=== PATIENT | female | born 1960 | race Caucasian/White ===

== ENCOUNTER → 2016-04-27 | Outpatient (CLI) | payer OTHER ==
[~2016-04-27] MED LIST: ACCL20 PO; ALBU0.08 INH; ASTN NAE; B-COTAB18 PO; BSP/5 PO; BUME1TAB PO; CRFL PO; CYCL5TAB28 PO; EPP3/2 IM; FEXO1TAB49 PO; FEXO1TAB58 PO; FLUO10CA24 PO; GABA-113 PO; GLYC2SUP PR; LEVO150T9 PO; LORA1TAB13 PO; METHPOW7 PO; MISCCAP80 PO; MOME200A INH; NAPR1TAB9 PO; NYSS/ PO; PANT40TA2 PO; Q NASAL INTNAS
--- NOTE | 2016-04-27 15:10 | DIAGNOSTIC IMAGING REPORT ---
CHEST 2 VIEWS ROUTINE CLINICAL HISTORY: R05 [id number] dyspnea COMPARISON STUDY: 12/28/2015 FINDINGS: The bones soft tissues and hemidiaphragms are normal. The cardiomediastinal silhouette is normal. The lungs are clear. The pulmonary vasculature is normal. IMPRESSION: Negative chest. Electronically signed by: Sincere Vann M.D. 04/27/2016 3:08 PM Dictated Date/Time: 04/27/2016 3:07 PM
== END | disposition home or self-care (01) ==
LOC: C.RAD1850 14:47
PROVIDERS: ATTEND Internal Medicine
DX: R05 Cough (principal)

== ENCOUNTER → 2016-06-14 | Outpatient (CLI) | payer OTHER ==
[~2016-06-14] MED LIST changes: -PANT40TA2 PO; +PRT/40 PO
[2016-06-14 14:38] LABS: BASO % 0.5 %; BASO ABS # 0.04 K/uL (0-0.2); COMPLETE YES; HEMATOCRIT 38.5 % (37-47); IG% 0.3 %; LYMPH % 32.9 %; LYMPH ABS # 2.49 K/uL (1.2-3.4); MEAN CELL VOLUME 91.2 fL (80-100); MEAN CORPUSCULAR HEMOGLOBIN 30.3 pg (25-34); MEAN CORPUSCULAR HGB CONC 33.2 g/dl (32-36); MEAN PLATELET VOLUME 10.6 fL (7.4-10.4); MONO % 8.2 %; NEUT % 56.1 %; PLATELET COUNT 310 K/uL (130-400); RED BLOOD COUNT 4.22 M/uL (4.2-5.4); WHITE BLOOD COUNT 7.56 K/uL (4.8-10.8)
== END | disposition home or self-care (01) ==
LOC: C.LAB1850 12:25
PROVIDERS: ATTEND Specialist
DX: J45.909 Unspecified asthma, uncomplicated (principal); J30.2 Other seasonal allergic rhinitis

== ENCOUNTER → 2016-06-16 | Outpatient (CLI) | payer OTHER ==
--- NOTE | 2016-06-30 12:14 | CODING QUERY NO DIAGNOSIS ---
TREATMENT RENDERED WITHOUT A DIAGNOSIS To promote full compliance with coding requirements relating to patient care, physician participation is requested in all cases of juice bar team member uncertainty. Please assist us with providing a diagnosis/symptom for the test(s) below: A diagnosis/symptom was not documented on your Order. A valid diagnosis/symptom is required to bill all insurances. Please remember that we are unable to code a diagnosis of rule out, probable, possible, questionable, or suspected. Tests that require a diagnosis: * IMMUNOGLOBULIN E DIAGNOSIS: Provider Signature: Date: Thank you Sana Sims [employer] Once completed, please kindly fax back to [phone] For questions please call [phone]
== END | disposition home or self-care (01) ==
LOC: C.LABPVFM 11:29
PROVIDERS: ATTEND Specialist
DX: J45.30 Mild persistent asthma, uncomplicated (principal); J30.2 Other seasonal allergic rhinitis; J30.89 Other allergic rhinitis; R05 Cough

== ENCOUNTER → 2016-06-20 | Outpatient (CLI) | payer OTHER ==
--- NOTE | 2016-06-20 12:46 | DIAGNOSTIC IMAGING REPORT ---
RIGHT SHOULDER MIN 2 VIEWS ROUTINE CLINICAL HISTORY: Right shoulder pain following fall. COMPARISON: None FINDINGS: Alignment of the right shoulder is anatomic. There is no acute fracture. There is mild arthritis of the right shoulder. A 7 mm calcific density along the superolateral aspect of the right humeral head suggests calcific tendinitis. IMPRESSION: 1. No acute fracture or dislocation of the right shoulder. 2. Findings suggestive of calcific tendinitis of the right rotator cuff. Electronically signed by: Ankur Aguilar M.D. 06/20/2016 12:45 PM Dictated Date/Time: 06/20/2016 12:42 PM
--- NOTE | 2016-06-20 12:48 | DIAGNOSTIC IMAGING REPORT ---
RIGHT HIP UNILATERAL 2 VIEWS CLINICAL HISTORY: Trauma. COMPARISON: CT of the abdomen and pelvis September 10, 2015. FINDINGS: Alignment of the right hip is anatomic. No acute fracture is identified. Irregularity of the lesser trochanter is chronic. There is mild arthritis of the right hip. IMPRESSION: No acute fracture or dislocation of the right hip. Electronically signed by: Ankur Aguilar M.D. 06/20/2016 12:46 PM Dictated Date/Time: 06/20/2016 12:45 PM
--- NOTE | 2016-06-20 12:51 | DIAGNOSTIC IMAGING REPORT ---
RIGHT RIBS UNILATERAL WITH PA CHEST CLINICAL HISTORY: T14.90 Blunt [id number] Falls Right trauma COMPARISON STUDY: None FINDINGS: Negative right ribs. Negative chest. No evidence pneumothorax. IMPRESSION: Negative study Electronically signed by: Sincere Vann M.D. 06/20/2016 12:50 PM Dictated Date/Time: 06/20/2016 12:48 PM
--- NOTE | 2016-06-20 12:51 | DIAGNOSTIC IMAGING REPORT ---
CERVICAL SPINE 2 OR 3 VIEWS CLINICAL HISTORY: Falls. COMPARISON STUDY: Neck radiograph October 18, 2015. FINDINGS: Visualization of the cervical spine is adequate. There is reversal of the normal cervical lordosis. This is unchanged. Moderate multilevel degenerative disc disease and facet arthrosis is present. No acute fracture is identified IMPRESSION: 1. No acute cervical spine fracture or subluxation. 2. Moderate multilevel degenerative disc disease and facet arthrosis. Electronically signed by: Ankur Aguilar M.D. 06/20/2016 12:49 PM Dictated Date/Time: 06/20/2016 12:47 PM
== END | disposition home or self-care (01) ==
LOC: C.RAD1850 12:14
PROVIDERS: ATTEND Internal Medicine
DX: T14.90 Injury, unspecified (principal); W19.XXXA Unspecified fall, initial encounter

== ENCOUNTER → 2016-06-29 | Outpatient (CLI) | payer OTHER ==
--- NOTE | 2016-06-29 15:37 | MAMMOGRAPHY REPORT ---
BILATERAL DIGITAL SCREENING MAMMOGRAM TOMOSYNTHESIS WITH CAD: 06/29/2016 CLINICAL HISTORY: Routine screening. Patient has no complaints. TECHNIQUE: Breast tomosynthesis in addition to standard 2D mammography was performed. Current study was also evaluated with a Computer Aided Detection (CAD) system. COMPARISON: Comparison is made to exams dated: 12/08/2014 mammogram - [facility], 01/30/2013 mammogram, 10/14/2013 mammogram, 08/23/2011 mammogram - [facility], 02/24/2010 bettye mogram - [facility], and 07/06/2008. BREAST COMPOSITION: There are scattered areas of fibroglandular density in both breasts. FINDINGS: No suspicious masses, calcifications, or areas of architectural distortion are noted in e ither breast. There has been no significant interval change compared to prior exams. A biopsy marke r clip is again noted in the left 12 o'clock breast. Bilateral benign-appearing calcifications are not significantly changed. Benign intramammary lymph nodes are again seen within bilateral upper ou ter quadrants. IMPRESSION: ACR BI-RADS CATEGORY 2: BENIGN There is no mammographic evidence of malignancy. A 1 year screening mammogram is recommended. The p atient will receive written notification of the results. Approximately 10% of breast cancers are not detected with mammography. A negative mammographic repor t should not delay biopsy if a clinically suggestive mass is present. Galina Lopez M.D. /:06/29/2016 14:52:15 Trouble Tracer: Vonda MENDEZ(Kaity)(M), [facility] letter sent: Normal 1/2 BI-RADS Code: ACR BI-RADS Category 2: Benign
== END | disposition home or self-care (01) ==
LOC: C.MAMM 09:54
PROVIDERS: ATTEND Internal Medicine
DX: Z12.31 Encounter for screening mammogram for malignant neoplasm of breast (principal)

== ENCOUNTER → 2016-07-25 | Outpatient (CLI) | payer OTHER ==
[~2016-07-25] MED LIST changes: +PANT40TA2 PO; -PRT/40 PO
--- NOTE | 2016-07-25 15:14 | DIAGNOSTIC IMAGING REPORT ---
CHEST 2 VIEWS ROUTINE CLINICAL HISTORY: Cough. Shortness of breath. COMPARISON STUDY: Chest radiograph April 27, 2006. FINDINGS: Lung volumes are normal. Lungs are clear. There is no pneumothorax or pleural effusion. Cardiomediastinal silhouette is normal. A small hiatal hernia is again noted. There is no evidence of pulmonary edema. IMPRESSION: No acute cardiopulmonary findings. Electronically signed by: Ankur Aguilar M.D. 07/25/2016 3:13 PM Dictated Date/Time: 07/25/2016 3:12 PM
== END | disposition home or self-care (01) ==
LOC: C.RAD1850 14:40
PROVIDERS: ATTEND Physician Assistant
DX: R05 Cough (principal)

== ENCOUNTER → 2016-10-11 | Outpatient (CLI) | payer OTHER ==
[2016-10-11 09:38] LABS: ALT/SGPT 32 U/L (12-78); BLOOD UREA NITROGEN 19 mg/dl (7-18); BUN/CREATININE RATIO 19.4 (10-20); CARBON DIOXIDE 28 mmol/L (21-32); CHLORIDE 103 mmol/L (98-107); CHOLESTEROL 219 mg/dl (0-200); CREATININE 0.98 mg/dl (0.60-1.20); GLUCOSE 88 mg/dl (70-99); POTASSIUM 3.7 mmol/L (3.5-5.1); SODIUM 141 mmol/L (136-145); TRIGLYCERIDES 44 mg/dl (0-150); VERY LOW DENSITY LIPOPROT CALC 9 mg/dl
[2016-10-11 09:41] LABS: CALCIUM 9.1 mg/dl (8.5-10.1)
[2016-10-11 09:48] LABS: ALB/GLOB RATIO 1.1 (0.9-2); ALKALINE PHOSPHATASE 61 U/L (45-117); AST/SGOT 19 U/L (15-37); CHOLESTEROL/HDL RATIO 2.2; HDL CHOLESTEROL 99 mg/dl; LDL CHOLESTEROL CALCULATED 111 mg/dl
== END | disposition home or self-care (01) ==
LOC: C.LAB1850 07:29
PROVIDERS: ATTEND Internal Medicine
DX: E06.3 Autoimmune thyroiditis (principal)

== ENCOUNTER → 2017-02-12 | Outpatient (CLI) | payer OTHER ==
[~2017-02-12] MED LIST changes: -PANT40TA2 PO; +PRT/40 PO
--- NOTE | 2017-02-12 13:56 | DIAGNOSTIC IMAGING REPORT ---
CHEST 2 VIEWS ROUTINE HISTORY: 57 years-old Female I51.9 Diastolic dysfunction acute cough with shortness of breath COMPARISON: Chest radiograph 07/25/2016 TECHNIQUE: Frontal and lateral views of the chest FINDINGS: Cardiac silhouette is upper limits of normal. No pneumothorax, pleural effusion or lobar airspace consolidation. Subsegmental linear bibasilar opacities suggest atelectasis. No overt pulmonary edema. Multilevel spondylitic changes of the spine. Surgical clips of the right upper abdomen suggest prior cholecystectomy. IMPRESSION: No acute cardiopulmonary process. The above report was generated using voice recognition software. It may contain grammatical, syntax or spelling errors. Electronically signed by: Louie Colon M.D. 02/12/2017 1:55 PM Dictated Date/Time: 02/12/2017 1:53 PM
== END | disposition home or self-care (01) ==
LOC: C.RAD1850 13:16
PROVIDERS: ATTEND Internal Medicine
DX: I51.9 Heart disease, unspecified (principal)

== ENCOUNTER → 2017-04-10 | Outpatient (CLI) | payer OTHER ==
[~2017-04-10] MED LIST changes: -ACCL20 PO; +PANT40TA2 PO; -PRT/40 PO; +ZAFI1TAB11 PO
[2017-04-10 10:24] LABS: PTT PATIENT 28.1 SECONDS (21.0-31.0)
== END | disposition home or self-care (01) ==
LOC: C.LAB1850 09:41
PROVIDERS: ATTEND Internal Medicine
DX: R23.8 Other skin changes (principal)

== ENCOUNTER → 2017-07-13 | Outpatient (CLI) | payer OTHER ==
[~2017-07-13] MED LIST changes: +ACCL20 PO; -ZAFI1TAB11 PO
--- NOTE | 2017-07-16 12:43 | MAMMOGRAPHY REPORT ---
BILATERAL DIGITAL SCREENING MAMMOGRAM TOMOSYNTHESIS WITH CAD: 07/13/2017 CLINICAL HISTORY: Routine screening. Patient has no complaints. TECHNIQUE: Breast tomosynthesis in addition to standard 2D mammography was performed. Current study was also evaluated with a Computer Aided Detection (CAD) system. COMPARISON: Comparison is made to exams dated: 06/29/2016 mammogram, 12/08/2014 mammogram - [facility], 10/14/2013 mammogram, 01/30/2013 mammogram - [facility], 02/24/2010 mammo gram - [facility], and 08/23/2011 mammogram - [facility]. BREAST COMPOSITION: There are scattered areas of fibroglandular density in both breasts. FINDINGS: No suspicious masses, calcifications, or areas of architectural distortion are noted in ei ther breast. There has been no significant interval change compared to prior exams. A biopsy marker clip is again noted in the left 12:00 breast. Scattered bilateral benign-appearing calcifications ar e stable. IMPRESSION: ACR BI-RADS CATEGORY 2: BENIGN There is no mammographic evidence of malignancy. A 1 year screening mammogram is recommended. The pa tient will receive written notification of the results. Approximately 10% of breast cancers are not detected with mammography. A negative mammographic report should not delay biopsy if a clinically suggestive mass is present. Galina Lopez M.D. ah/:07/13/2017 14:33:26 Meat Selector: Deepali GUERRA)(Ahsan), [facility] letter sent: Normal 1/2 BI-RADS Code: ACR BI-RADS Category 2: Benign
== END | disposition home or self-care (01) ==
LOC: C.MAMM 13:46
PROVIDERS: ATTEND Internal Medicine
DX: Z12.31 Encounter for screening mammogram for malignant neoplasm of breast (principal)

== ENCOUNTER → 2017-07-25 | Outpatient (CLI) | payer OTHER ==
[2017-07-25 16:32] LABS: BASO % 0.8 %; BASO ABS # 0.07 K/uL (0-0.2); EOS ABS # 0.26 K/uL (0-0.5); HEMATOCRIT 38.2 % (37-47); HEMOGLOBIN 12.6 g/dL (12.0-16.0); IG# 0.03 K/uL (0.00-0.02); LYMPH % 31.7 %; LYMPH ABS # 2.78 K/uL (1.2-3.4); MEAN CELL VOLUME 91.8 fL (80-100); MEAN CORPUSCULAR HEMOGLOBIN 30.3 pg (25-34); MEAN PLATELET VOLUME 11.3 fL (7.4-10.4); MONO % 8.5 %; MONO ABS # 0.75 K/uL (0.11-0.59); NEUT % 55.7 %; NEUT ABS # 4.89 K/uL (1.4-6.5); PLATELET COUNT 309 K/uL (130-400); WHITE BLOOD COUNT 8.78 K/uL (4.8-10.8)
[2017-07-25 16:48] LABS: BLOOD UREA NITROGEN 25 mg/dl (7-18); CALCIUM 9.3 mg/dl (8.5-10.1); CARBON DIOXIDE 27 mmol/L (21-32); CREATININE 0.93 mg/dl (0.60-1.20); GLUCOSE 98 mg/dl (70-99); POTASSIUM 3.9 mmol/L (3.5-5.1); SODIUM 137 mmol/L (136-145)
== END | disposition home or self-care (01) ==
LOC: C.LAB1850 14:44
PROVIDERS: ATTEND Nurse Practitioner Adult Health
DX: R51 Headache (principal); E03.9 Hypothyroidism, unspecified

== ENCOUNTER 2017-08-15 10:09 | Emergency (ER) | payer OTHER ==
[~2017-08-15] VITALS: Ht 154.9 cm; Wt 89.4 kg
[~2017-08-15 10:09] MED LIST changes: -ACCL20 PO; +ZAFI1TAB11 PO
[2017-08-15 10:16] VITALS: TEMP 37; O2SAT 100; Ht 154.9 cm; Wt 89.4 kg
[2017-08-15] MEDS ORDERED: ONDANSETRON INJ 2 MG/ML 2 ML VIAL IV STA (10:21)
[2017-08-15] MEDS ORDERED: SODIUM CHLORIDE 0.9% 250ML 250 ML IV STA (10:21)
[2017-08-15] MEDS ORDERED: ALBUT/IPRATROP 3MG/0.5MG NEB 3 ML VIAL INH STA (10:21)
[2017-08-15] MEDS ORDERED: DEXAMETHASONE **PF** INJ 10 MG/ML VIAL IV ONE (10:30)
[2017-08-15] MEDS ORDERED: FAMOTIDINE 20 MG TAB PO ONE (10:30)
[2017-08-15 10:48] LABS: BASO % 0.7 %; BASO ABS # 0.05 K/uL (0-0.2); EOS % 3.5 %; EOS ABS # 0.24 K/uL (0-0.5); HEMATOCRIT 39.6 % (37-47); IG# 0.01 K/uL (0.00-0.02); LYMPH ABS # 2.22 K/uL (1.2-3.4); MEAN CELL VOLUME 92.3 fL (80-100); MEAN CORPUSCULAR HEMOGLOBIN 30.3 pg (25-34); MEAN CORPUSCULAR HGB CONC 32.8 g/dl (32-36); MEAN PLATELET VOLUME 10.3 fL (7.4-10.4); MONO % 8.9 %; MONO ABS # 0.62 K/uL (0.11-0.59); NEUT % 54.8 %; PLATELET COUNT 303 K/uL (130-400); RED CELL DISTRIBUTION WIDTH CV 13.9 % (11.5-14.5); RED CELL DISTRIBUTION WIDTH SD 46.3 fL (36.4-46.3); WHITE BLOOD COUNT 6.94 K/uL (4.8-10.8)
[2017-08-15 11:07] LABS: ALBUMIN 3.7 gm/dl (3.4-5.0); ALT/SGPT 31 U/L (12-78); AST/SGOT 21 U/L (15-37); BLOOD UREA NITROGEN 20 mg/dl (7-18); CALCIUM 9.4 mg/dl (8.5-10.1); CARBON DIOXIDE 29 mmol/L (21-32); CREATININE 0.92 mg/dl (0.60-1.20); GLUCOSE 96 mg/dl (70-99); LIPASE 120 U/L (73-393); POTASSIUM 3.8 mmol/L (3.5-5.1); SODIUM 139 mmol/L (136-145)
--- NOTE | 2017-08-15 11:10 | DIAGNOSTIC IMAGING REPORT ---
CHEST ONE VIEW PORTABLE HISTORY: Atypical CHEST PAIN COMPARISON: None. FINDINGS: The lungs are clear. Cardiac silhouette is normal in size. No pleural effusions. No pneumothorax. Stable small lobular retrocardiac density. This is consistent with a small hiatus hernia. IMPRESSION: No acute process. Electronically signed by: Stanley Shabazz M.D. 08/15/2017 11:09 AM Dictated Date/Time: 08/15/2017 11:04 AM
[2017-08-15 11:13] LABS: ALKALINE PHOSPHATASE 86 U/L (45-117); TOTAL PROTEIN 7.2 gm/dl (6.4-8.2)
[2017-08-15] MEDS ORDERED: GI COCKTAIL PO STA (13:11)
[2017-08-15] MEDS ORDERED: LIDOCAINE HCL 2% VISC SOLN 20 ML UDC ONE (13:18)
[2017-08-15] MEDS ORDERED: ALUMINUM/MAGNESIUM SUSP 30 ML UDC ONE (13:18)
--- NOTE | 2017-08-15 13:55 | DIAGNOSTIC IMAGING REPORT ---
THORACIC SPINE 3 VIEWS ROUTINE HISTORY: Pain pain COMPARISON: 08/13/2014 FINDINGS: There is no fracture. No subluxation. Moderate degenerative disc changes throughout. IMPRESSION: Moderate degenerative disc change. No acute process. No change from the prior exam. The above report was generated using voice recognition software. It may contain grammatical, syntax or spelling errors. Electronically signed by: Sincere Vann M.D. 08/15/2017 1:54 PM Dictated Date/Time: 08/15/2017 1:54 PM
--- NOTE | 2017-08-15 14:00 | DIAGNOSTIC IMAGING REPORT ---
LUMBAR SPINE 2 OR 3 VIEWS CLINICAL HISTORY: pain pain COMPARISON STUDY: 01/05/2016 FINDINGS: Vertebral body stature is unremarkable. Minimal grade 1 anterolisthesis of L4 on L5 unchanged. Mildly progressive degenerative disc change L1-L2 and L2-L3. IMPRESSION: 1. Mildly progressive degenerative disc change L1-L2 and L2-L3 compared to the prior study. 2. Minimal grade 1 anterolisthesis of L4 and L5 unchanged. The above report was generated using voice recognition software. It may contain grammatical, syntax or spelling errors. Electronically signed by: Sincere Vann M.D. 08/15/2017 1:59 PM Dictated Date/Time: 08/15/2017 1:58 PM
--- NOTE | 2017-08-15 16:32 | EMERGENCY ROOM VISIT NOTE ---
History Report prepared by Vicky: Everton Franklin Under the Supervision of: Dr. Karlos Solorzano M.D. First contact with patient: 10:13 Chief Complaint: CHEST PAIN Stated Complaint: CHEST PAIN,ARM AND BACK PAIN History of Present Illness The patient is a 57 year old female who presents to the Emergency Room by EMS with complaints of constant left lower chest pain beginning shortly prior to arrival. She woke up with her pain this morning. She felt normal before going to bed last night. The patient describes her pain as a feeling of "heaviness". She states that she felt short of breath upon waking up, but this happens frequently due to a history of sleep apnea. She is on supplemental oxygen at night for sleep apnea, but is not on CPAP or BiPAP due to anxiety. The patient also complains of fatigue, nausea, and chills. She had one episode of vomiting today. She reports a lot of central back pain for "many, many years" (she receives physical therapy for this). She denies fevers, or congestion. The patient has had a cough for several months. She also reports having a sensitive tooth on the left lower side (patient was seen by dentist two weeks ago, and it was deemed normal). She has a history of GERD. Source of History: patient Onset: Shortly prior to arrival Position: chest (left lower) Quality: other ("heaviness") Timing: constant Associated Symptoms: + chills, + nausea, + vomiting (one episode today), + fatigue, No fevers Note: Negative: congestion. Review of Systems See HPI for pertinent positives and negatives. A total of ten systems were reviewed and were otherwise negative. Past Medical & Surgical Medical Problems: (1) Allergic reaction (2) Allergic reaction (3) Asthma (4) Asthma (5) Back pain (6) Back pain (7) Back pain (8) CHOLECYSTITIS, NOS (9) ESOPHAGEAL REFLUX (10) Fibromyalgia (11) HYPOTHYROIDISM NOS (12) Impaired swallowing (13) IRRITABLE BOWEL SYNDROME (14) MYALGIA AND MYOSITIS NOS (15) Seasonal allergies (16) Seasonal allergies (17) Spinal stenosis (18) Swallowing difficulty (19) Vaso vagal episode Surgical Problems: (1) History of cholecystectomy Family History Cancer Diabetes mellitus Gallbladder disease Hypertension Social History Smoking Status: Former Smoker Alcohol Use: occasionally Drug Use: none Marital Status: Housing Status: lives with significant other Occupation Status: employed Current/Historical Medications Scheduled Azelastine Hcl (Astelin Nasal [place]), 2 SPRAY AMANDA QAM B-Complex Vitamins (Vitamin B Complex), 1 TAB PO QAM Buspirone HCl (Buspirone HCl), 5 MG PO HS Fluoxetine HCl (Fluoxetine HCl), 20 MG PO HS Levothyroxine Sodium (Levothyroxine Sodium), 150 MCG PO 6XWEEK Methylcellulose (Laxative) (Citrucel Fiber Laxative), 1 DOSE PO DAILY Mometasone Furoate-Formoterol (Dulera 200/5 Mcg), 2 PUFFS INH BID Naproxen (Aleve), 440 MG PO PRN Pantoprazole (Pantoprazole Sodium), 40 MG PO BID Probiotic Product (Probiotic), 1 CAP PO BID Sucralfate (Carafate), 10 ML PO HS Zafirlukast (Zafirlukast), 20 MG PO BID [Q Nasal], 2 SPRAYS INTNAS QPM Scheduled PRN Albuterol Soln (Proventil 0.083% 2.5MG/3ML), 2.5 MG INH Q4 PRN for SOB/Wheezing Bumetanide (Bumex), 0.5-1 MG PO DAILY PRN for EDEMA Cyclobenzaprine Hcl (Flexeril), 5 MG PO TID PRN Epinephrine (Epipen), 0.3 MG IM UD PRN for ALLERGIC REACTION Fexofenadine Hcl (Myrna Allergy), 1 TAB PO DAILY PRN for ALLERGIC REACTION Fexofenadine-Pseudoephedrine (Myrna-D 24 Hour Allergy), 1 TAB PO DAILY PRN for ALLERGIC REACTION Glycerin (Laxative) (Glycerin Adult), 1 SUPP AL DAILY PRN for unkn Lorazepam (Lorazepam), 1 MG PO BID PRN for Anxiety Nystatin (Nystatin Suspension), 5 ML PO QID PRN for RN Allergies Coded Allergies: Shellfish (Verified Allergy, Severe, ANAPHYLAXIS, 08/15/17) Iodine (Verified Allergy, Intermediate, SHORTNESS OF BREATH, 08/15/17) Penicillins (Verified Allergy, Mild, HIVES, 08/15/17) Montelukast (Verified Allergy, Unknown, RASH, 08/15/17) Omalizumab (Verified Allergy, Unknown, RASH, 08/15/17) Sulfa Drugs (Verified Allergy, Unknown, A CHILD, BAD RASH, 08/15/17) Tuberculin Tests (Verified Allergy, Unknown, RASH, 08/15/17) Physical Exam Vital Signs Date Time Temp Pulse Resp B/P (MAP) Pulse Ox O2 Delivery O2 Flow Rate FiO2 08/15/17 16:45 88 22 158/91 96 08/15/17 14:40 85 20 146/94 96 Room Air 08/15/17 13:21 85 20 144/96 98 Room Air 08/15/17 13:16 88 08/15/17 12:00 77 16 135/81 98 Room Air 08/15/17 11:01 74 16 168/99 100 Room Air 08/15/17 10:21 83 08/15/17 10:16 100 Room Air 08/15/17 10:16 37.0 78 16 169/98 100 Room Air 08/15/17 10:16 100 Room Air Physical Exam GENERAL: Awake, alert, anxious, well-appearing, in no distress HENT: Normocephalic, atraumatic. Oropharynx unremarkable other than dry mucous membranes. EYES: Normal conjunctiva. Sclera non-icteric. NECK: Supple. No nuchal rigidity. FROM. No JVD. RESPIRATORY: Clear to auscultation. CARDIAC: Regular rate, normal rhythm. Extremities warm and well perfused. Pulses equal. ABDOMEN: Soft, non-distended. Mild epigastric discomfort to palpation. No rebound or guarding. No masses. RECTAL: Deferred. MUSCULOSKELETAL: Chest examination reveals reproducible left anterior chest wall pain. The back is symmetrical on inspection without obvious abnormality. There is no CVA tenderness to palpation. No joint edema. LOWER EXTREMITIES: Calves are equal size bilaterally and non-tender. No edema. No discoloration. NEURO: Normal sensorium. No sensory or motor deficits noted. SKIN: No rash or jaundice noted. Medical Decision & Procedures ER Provider Diagnostic Interpretation: Radiology results as stated below per my review and radiologist interpretation: CHEST ONE VIEW PORTABLE FINDINGS: The lungs are clear. Cardiac silhouette is normal in size. No pleural effusions. No pneumothorax. Stable small lobular retrocardiac density. This is consistent with a small hiatus hernia. IMPRESSION: No acute process. Electronically signed by: Stanley Shabazz M.D. 08/15/2017 11:09 AM Laboratory Results 08/15/17 10:30 Red Blood Count 4.29, Mean Corpuscular Volume 92.3, Mean Corpuscular Hemoglobin 30.3, Mean Corpuscular Hemoglobin Concent 32.8, Mean Platelet Volume 10.3, Neutrophils (%) (Auto) 54.8, Lymphocytes (%) (Auto) 32.0, Monocytes (%) (Auto) 8.9, Eosinophils (%) (Auto) 3.5, Basophils (%) (Auto) 0.7, Neutrophils # (Auto) 3.80, Lymphocytes # (Auto) 2.22, Monocytes # (Auto) 0.62, Eosinophils # (Auto) 0.24, Basophils # (Auto) 0.05 08/15/17 10:30 Test 08/15/17 10:30 08/15/17 12:24 White Blood Count 6.94 K/uL (4.8-10.8) Red Blood Count 4.29 M/uL (4.2-5.4) Hemoglobin 13.0 g/dL (12.0-16.0) Hematocrit 39.6 % (37-47) Mean Corpuscular Volume 92.3 fL (80-100) Mean Corpuscular Hemoglobin 30.3 pg (25-34) Mean Corpuscular Hemoglobin Concent 32.8 g/dl (32-36) Platelet Count 303 K/uL (130-400) Mean Platelet Volume 10.3 fL (7.4-10.4) Neutrophils (%) (Auto) 54.8 % Lymphocytes (%) (Auto) 32.0 % Monocytes (%) (Auto) 8.9 % Eosinophils (%) (Auto) 3.5 % Basophils (%) (Auto) 0.7 % Neutrophils # (Auto) 3.80 K/uL (1.4-6.5) Lymphocytes # (Auto) 2.22 K/uL (1.2-3.4) Monocytes # (Auto) 0.62 K/uL (0.11-0.59) Eosinophils # (Auto) 0.24 K/uL (0-0.5) Basophils # (Auto) 0.05 K/uL (0-0.2) RDW Standard Deviation 46.3 fL (36.4-46.3) RDW Coefficient of Variation 13.9 % (11.5-14.5) Immature Granulocyte % (Auto) 0.1 % Immature Granulocyte # (Auto) 0.01 K/uL (0.00-0.02) Anion Gap 4.0 mmol/L (3-11) Est Creatinine Clear Calc Drug Dose 67.0 ml/min Estimated GFR () 79.0 Estimated GFR (Non- 68.2 BUN/Creatinine Ratio 21.6 (10-20) Calcium Level 9.4 mg/dl (8.5-10.1) Total Bilirubin 0.4 mg/dl (0.2-1) Direct Bilirubin < 0.1 mg/dl (0-0.2) Aspartate Amino Transf (AST/SGOT) 21 U/L (15-37) Alanine Aminotransferase (ALT/SGPT) 31 U/L (12-78) Alkaline Phosphatase 86 U/L (45-117) Pro-B-Type Natriuretic Peptide 49 pg/ml (0-900) Total Protein 7.2 gm/dl (6.4-8.2) Albumin 3.7 gm/dl (3.4-5.0) Lipase 120 U/L (73-393) Troponin I < 0.015 ng/ml (0-0.045) Laboratory results reviewed by me Medications Administered Medications (Trade) Dose Ordered Sig/Maximiliano Route Start Time Stop Time Status Last Admin Dose Admin Ondansetron HCl (Zofran Inj) 4 mg NOW STAT IV 08/15/17 10:21 08/15/17 10:33 DC 08/15/17 10:48 4 MG Famotidine (Pepcid Tab) 20 mg NOW ONCE PO 08/15/17 10:30 08/15/17 10:33 DC 08/15/17 10:48 20 MG Dexamethasone Sodium Phosphate (Dexamethasone Inj Pf) 10 mg NOW ONCE IV 08/15/17 10:30 08/15/17 10:33 DC 08/15/17 10:48 10 MG Albuterol/ Ipratropium (Duoneb) 3 ml NOW STAT INH 08/15/17 10:21 08/15/17 10:33 DC 08/15/17 10:48 3 ML Sodium Chloride 250 ml @ 999 mls/hr Q16M STAT IV 08/15/17 10:21 08/15/17 10:36 DC 08/15/17 10:48 999 MLS/HR Al Hydroxide/Mg Hydroxide (Maalox Susp) 30 ml STK-MED ONCE .ROUTE 08/15/17 13:18 08/15/17 13:19 DC 08/15/17 13:18 30 ML Lidocaine HCl (Viscous Lidocaine 2% Soln) 20 ml STK-MED ONCE .ROUTE 08/15/17 13:18 08/15/17 13:19 DC 08/15/17 13:18 20 ML ECG Per My Interpretation Indication: chest pain Rate (beats per minute): 74 Rhythm: normal sinus Findings: other (Normal axis. No ST elevations. ) ED Course 1020: The patient was evaluated in room B2. A complete history and physical exam was performed. 1628: I reevaluated the patient. Discussed results and discharge instructions: she verbalized understanding and agreement. The patient is ready for discharge. Medical Decision I reviewed the patient's past medical history, medications, and the nursing notes as described above. Differential diagnosis: Etiologies such as cardiac ischemia, aortic dissection, pulmonary embolism, pneumonia, pneumothorax, musculoskeletal, infections, pericarditis, myocarditis , esophageal rupture, gastrointestinal, as well as others were entertained. The patient is a 57 y/o woman with a pmhx of chronic back pain, fibromyalgia, GERD, Asthma, LAMAR who presents to the emergency department with constant CP since this morning per HPI. On arrival the patient is in NAD, AFVSS. On exam the patient has mild epigastric discomfort and reproducible left anterior CW ttp. EKG unremarkable. CXR negative. Labs unremarkable including trop and delta 2 hour troponin negative. Plain films of TL spine negative for acute findings. Patient feeling improved after pepcid, GI cocktial, dexamethasone/duo neb. Heart score 3, low risk, acs unlikely. No hypoxia/tachycardia so PE not likely. Not positional, pericarditis not likely. No tearing pain and equal pulses, dissection not likely. Sx likely multifactorial related to relfux, and patient' s asthma, as well as underlying fibromyalgia. Patient has cardiology appointment already scheduled for tomorrow. Findings and plan for follow-up reviewed with patient. Patient agreeable and d/c'd per discharge instructions. Medication Reconcilliation Current Medication List: was personally reviewed by me Blood Pressure Screening Patient's blood pressure: Elevated blood pressure Blood pressure disposition: Referred to PCP Impression Primary Impression: Chest wall pain Additional Impression: Acid reflux Scribe Attestation The scribe's documentation has been prepared under my direction and personally reviewed by me in its entirety. I confirm that the note above accurately reflects all work, treatment, procedures, and medical decision making performed by me. Departure Information Dispostion Home / Self-Care Referrals RV. Strong MD (PCP) Patient Instructions Acid Reflux, ED Chest Pain Atypical Unkn Cause, ED Chest Pain Costochondritis, My [facility] Additional Instructions Please follow up with your primary care physician in the next 1-3 days and with cardiology tomorrow as scheduled for re-evaluation. Your symptoms are likely related to reflux as well as chest wall inflammation in the setting of your fibromyalgia. Otherwise, your exam, EKG, chest xray, and lab results did not show signs of an emergent condition at this time. Acetaminophen or ibuprofen for pain and fevers as needed. Continue your current medications. Drink plenty of fluids to ensure hydration. Return to the emergency department for worsening symptoms as described in the accompanying instructions. Problem Qualifiers
[2017-08-15 16:45] VITALS: BP 158/91; PULSE 88; O2SAT 96
== END 2017-08-15 16:46 | disposition home or self-care (01) ==
LOC: C.EDB 10:11
DX: R07.89 Other chest pain (principal); K21.9 Gastro-esophageal reflux disease without esophagitis; G47.30 Sleep apnea, unspecified; R11.10 Vomiting, unspecified; J45.909 Unspecified asthma, uncomplicated; E03.9 Hypothyroidism, unspecified; Z87.891 Personal history of nicotine dependence; Z90.49 Acquired absence of other specified parts of digestive tract; Z83.3 Family history of diabetes mellitus; Z82.49 Family history of ischemic heart disease and other diseases of the circulatory system; Z91.013 Allergy to seafood; Z91.041 Radiographic dye allergy status; Z88.0 Allergy status to penicillin; Z88.8 Allergy status to other drugs, medicaments and biological substances; Z88.2 Allergy status to sulfonamides; Z79.899 Other long term (current) drug therapy

== ENCOUNTER → 2017-11-24 | Outpatient (CLI) | payer OTHER ==
[~2017-11-24] MED LIST changes: -GABA-113 PO
--- NOTE | 2017-11-24 10:53 | DIAGNOSTIC IMAGING REPORT ---
RIGHT WRIST 4 VIEWS CLINICAL HISTORY: Fall with right wrist pain. FINDINGS: 4 views of the right wrist are correlated with radiographs of the right hand dated 07/06/2015. The skeletal structures are osteopenic. No acute fracture is seen. There is a chronic avulsion injury of the ulnar styloid. Mild degenerative narrowing is seen at the radiocarpal articulation as well as the first carpometacarpal joint. No erosive disease is suggested. Mild soft tissue edema is noted around the wrist. IMPRESSION: 1. Soft tissue swelling with no radiographic evidence of acute fracture. 2. Osteopenia and chronic changes as above. Electronically signed by: Jerod Kramer M.D. 11/24/2017 10:52 AM Dictated Date/Time: 11/24/2017 10:50 AM
--- NOTE | 2017-11-24 10:56 | DIAGNOSTIC IMAGING REPORT ---
LEFT KNEE 4 VIEWS CLINICAL HISTORY: Recent fall. Left knee pain. FINDINGS: AP, lateral, internally rotated, and externally rotated views of the left knee are obtained. Correlation is made with radiographs of the left tibia and fibula dated 01/05/2016. The skeletal structures are osteopenic. No fracture is seen. There is mild tricompartmental degenerative joint space narrowing. There are small patellar enthesophytes and degenerative beaking of the tibial spine. No large joint effusion is identified. The overlying soft tissues are normal in appearance. IMPRESSION: Osteopenia and mild degenerative change as above. No acute osseous abnormality is identified. Electronically signed by: Jerod Kramer M.D. 11/24/2017 10:54 AM Dictated Date/Time: 11/24/2017 10:52 AM
--- NOTE | 2017-11-24 11:19 | DIAGNOSTIC IMAGING REPORT ---
LUMBAR SPINE 5 VIEWS CLINICAL HISTORY: Low back pain. Recent fall. FINDINGS: Five views of the lumbar spine are compared to a study dated 08/15/2017. The skeletal structures are osteopenic. There is no radiographic evidence of fracture or malalignment. Vertebral body height is maintained throughout the lumbar spine. There is minimal retrolisthesis at L1-L2 and L2-L3. Mild anterolisthesis is seen at L4-L5. Small anterior osteophytes are seen throughout. Mild hyperlordosis is observed. The transverse and spinous processes are intact as imaged. There is no evidence of spondylolysis. Mild facet arthropathy seen in the lower lumbar region. Minimal levocurvature is observed. Moderate disc space narrowing is seen at L1-L2 and L2-L3 with associated endplate sclerosis. Mild disc space narrowing is seen at the remaining lumbar levels. The visualized bony pelvis appears intact. Cholecystectomy clips are observed. No bowel obstruction is seen. IMPRESSION: 1. There is no radiographic evidence of fracture or malalignment involving the lumbar spine. 2. Osteopenia and spondylotic change as above. This is similar to the 08/15/2017 examination. Dictated: 11/24/2017 10:44 AM Transcribed: 11/24/2017 11:19 AM [email or web address] Electronically signed by: Jerod Kramer M.D. 11/24/2017 11:27 AM Dictated Date/Time: 11/24/2017 10:44 AM
--- NOTE | 2017-11-24 11:20 | DIAGNOSTIC IMAGING REPORT ---
THORACIC SPINE 3 VIEWS CLINICAL HISTORY: Recent fall. Thoracic back pain. FINDINGS: AP, lateral, and swimmer's views of the thoracic spine are compared to a study dated 08/15/2017. The skeletal structures are osteopenic. There is no radiographic evidence of fracture or malalignment. Vertebral body height and alignment are maintained throughout the thoracic spine. The transverse processes and pedicles are grossly intact as seen on the frontal view. Mild multilevel degenerative disc space narrowing is observed. Tiny anterior osteophytes are seen throughout. The imaged lung parenchyma appears clear. Cholecystectomy clips are noted in the right upper quadrant. IMPRESSION: 1. There is no radiographic evidence of fracture or malalignment involving the thoracic spine. 2. Osteopenia and mild spondylotic change as above. Dictated: 11/24/2017 10:46 AM Transcribed: 11/24/2017 11:20 AM [email or web address] Electronically signed by: Jerod Kramer M.D. 11/24/2017 11:28 AM Dictated Date/Time: 11/24/2017 10:46 AM
== END | disposition home or self-care (01) ==
LOC: C.RAD1850 10:01
PROVIDERS: ATTEND Internal Medicine
DX: M54.6 Pain in thoracic spine (principal); M54.5 Low back pain; T07.XXXA Unspecified multiple injuries, initial encounter; W19.XXXA Unspecified fall, initial encounter; M85.89 Other specified disorders of bone density and structure, multiple sites

== ENCOUNTER → 2017-11-30 | Outpatient (CLI) | payer OTHER ==
--- NOTE | 2017-11-30 15:31 | DIAGNOSTIC IMAGING REPORT ---
L RIBS UNILATERAL WITH PA CHEST CLINICAL HISTORY: RIB PAIN pain COMPARISON STUDY: No previous studies for comparison. FINDINGS: Nondisplaced cortical fracture left ninth rib. All remaining ribs are unremarkable. Lungs are clear. Small hiatal hernia. No evidence for pneumothorax. IMPRESSION: Nondisplaced cortical fracture left ninth rib. The above report was generated using voice recognition software. It may contain grammatical, syntax or spelling errors. Electronically signed by: Sincere Vann M.D. 11/30/2017 3:29 PM Dictated Date/Time: 11/30/2017 3:29 PM
== END | disposition home or self-care (01) ==
LOC: C.RADBC 15:06
PROVIDERS: ATTEND Physician Assistant Medical
DX: R07.81 Pleurodynia (principal); T07.XXXA Unspecified multiple injuries, initial encounter; X58.XXXA Exposure to other specified factors, initial encounter

== ENCOUNTER → 2017-12-06 | Outpatient (CLI) | payer OTHER | END | disposition home or self-care (01) | LOC: C.RDSM 10:28 | PROVIDERS: ATTEND Podiatrist | DX: M79.672 Pain in left foot (principal) ==